=== PATIENT | male | born 1960 ===

== ENCOUNTER 2019-07-10 08:00 | Outpatient (CLI) | payer SELFPAY ==
[2019-07-10 08:36] LABS: HEMOGLOBIN A1C 5.7 % (4.5-6.2)
[2019-07-10 08:47] LABS: CHOL/HDL RATIO 5.18 (0.00-4.99)
== END 2019-07-10 23:59 | disposition home or self-care (01) ==
LOC: HW HEART 08:00 → EDSTATUS 11:02 → HW HEART 23:59
DX: Z76.89 Persons encountering health services in other specified circumstances (principal)
CPT/HCPCS: 36415